=== PATIENT | female | born 1995 | race Caucasian/White ===

== ENCOUNTER 2021-12-05 14:31 | Emergency (ER) | payer MEDICAID, SELFPAY ==
[2021-12-05 15:38] LABS: Adenovirus,PCR Not Detected (NotDetected); Bordetella Pertussis Not Detected (NotDetected); Chlamydophila Pneumoniae, PCR Not Detected (NotDetected); Coronavirus 229E Not Detected (NotDetected); Coronavirus NL63 Not Detected (NotDetected); Coronavirus OC43 Not Detected (NotDetected); Coronovirus HKU1,PCR Not Detected (NotDetected); Human Metapneumovirus Not Detected (NotDetected); Influenza A, PCR Not Detected (NotDetected); Influenza AH1, 2009 Not Detected (NotDetected); Influenza AH1, PCR Not Detected (NotDetected); Influenza AH3,PCR Not Detected (NotDetected); Influenza B, PCR Not Detected (NotDetected); Mycoplasma Pneumoniae, PCR Not Detected (NotDetected); Parainfluenza 1, PCR Not Detected (NotDetected); Parainfluenza 2, PCR Not Detected (NotDetected); Parainfluenza 3, PCR Not Detected (NotDetected); Parainfluenza 4, PCR Not Detected (NotDetected); Respiratory Syncytial Virus Not Detected (NotDetected); Rhinovirus/Enterovirus Not Detected (NotDetected)
--- NOTE | 2021-12-05 15:39 | HMH.EDUTC ---
[facility] – [place] Disposition Clinical Impression: Viral syndrome, Exposure to COVID-19 virus Qualifiers: Weeks of gestation: 16 weeks Qualified Code(s): Z3A.16 - 16 weeks gestation of Disposition: Home, Self-Care Condition on Discharge: Good Instructions: DI for COVID-19 (Suspected or Confirmed ), Preventing the Spread of Coronavirus Discharge Instructions Additional Instructions: Drink plenty of fluids. Take tylenol for pain or fever. Return if you begin to have difficulty breathing. Follow up with your regular doctor. 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 GO TO THE ER FOR ANY WORSENING SYMPTOMS Quarantine until you know the results of your covid-19 test. If it is positive, the health department should call you and give you further instructions about your length of Quarantine and other things. Notify your school or workplace of your results and follow their instructions regarding return to work/school. Referrals: Provider,Referral, [Primary Care Provider] - Time of Disposition: 15:42 Medical Decision Making - Medical Records Medical records reviewed: No: I reviewed the patient's medical records. - David Inquiry Pt receiving controlled substance: No Vital Signs: 12/05/21 15:41 12/05/21 15:56 Temperature 97.9 F 97.9 F Temperature Source Oral Pulse Rate 111 H Pulse Rate [Left] 111 H Respiratory Rate 18 18 Blood Pressure 125/82 Blood Pressure [Right Arm] 125/82 Blood Pressure Mean [Right Arm] 96 02 Sat by Pulse Oximetry 97 - Lab Data Lab Results 12/05/21 15:20: Chlamy pneumoniae PCR Not detected, Adenovirus (PCR) Not detected, B. pertussis DNA (PCR) Not detected, Coronavirus OC43 (PCR) Not detected, Coronavirus HKU1 (PCR) Not detected, Coronavirus 229E (PCR) Not detected, SARS-CoV-2 (PCR) Detected A, Coronavirus NL63 (PCR) Not detected, Human Metapneumovir PCR Not detected, Influenza A (H1) PCR Not detected, Influ A (H1N1/09) PCR Not detected, Influenza A (H3) PCR Not detected, Influenza Type A (PCR) Not detected, Influenza Type B (PCR) Not detected, M. pneumoniae (PCR) Not detected, Parainfluenza 1 (PCR) Not detected, Parainfluenza 2 (PCR) Not detected, Parainfluenza 3 (PCR) Not detected, Parainfluenza 4 (PCR) Not detected, RSV (PCR) Not detected, Entero/Rhino (PCR) Not detected [facility] – [place] HPI - General Stated complaint: covid test Time Seen by Provider: 12/05/21 15:39 - History of Present Illness Provider Complaint: Her son tested positive for covid-19 last night. She states that she has felt bad since yesterday and ran a low grade fever. She is 16 weeks . - Related Data Allergies Allergy/AdvReac Type Severity Reaction Status Date / Time No Known Allergies Allergy Verified 12/05/21 15:43 [facility] History - Hepatitis A Screen Attestation statement:: This patient has been screened for Hepatitis A risk factors. I have reviewed the patient's past medical history: Yes ROS Obtained: Yes All systems reviewed & no additional complaints - Constitutional Constitutional: Reports as per HPI - Eyes Eyes: Denies eye discharge - ENT Ears, Nose, Mouth, and Throat: Reports as per HPI - Cardiovascular Cardiovascular: Denies chest pain - Respiratory Respiratory: Denies chest congestion, Reports cough Physical Exam - General General appearance: alert, in no apparent distress - Head Head exam: atraumatic, normocephalic, normal inspection - Eye Eye exam: Present: normal appearance, PERRL, EOMI - ENT ENT exam: Present: normal exam, normal oropharynx, mucous membranes moist, TM's normal bilaterally, normal external ear exam - Neck Neck exam: Present: normal inspection, full ROM, trachea midline. Absent: meningismus, lymphadenopathy - Chest Chest inspection: Present: normal inspection, symmetric chest wall rise. Absent: tenderness - Respiratory Respiratory exam: Present: normal lung soun
[2021-12-05 15:41] VITALS: BP 125/82; PULSE 111; RESP 18; TEMP 36.6; O2SAT 97; BMI 41.6
[2021-12-05 15:56] VITALS: BP 125/82; PULSE 111; RESP 18; TEMP 36.6
[2021-12-05 21:26] LABS: Coronavirus 19, PCR Detected (NotDetected)
== END 2021-12-05 15:57 | disposition home or self-care (01) ==
PROVIDERS: Emergency Provider Nurse Practitioner Family
DX: O26.892 Other specified pregnancy related conditions, second trimester (principal); Z3A.16 16 weeks gestation of pregnancy; U07.1 COVID-19
CPT/HCPCS: 87581; 87632; 87798; 99212; C9803; G0463; U0003; U0005

== ENCOUNTER → 2021-12-19 14:01 | Outpatient (CLI) | payer MEDICAID, SELFPAY ==
--- NOTE | 2021-12-19 14:03 | US_ITS ---
FINAL REPORT CLINICAL HISTORY: dates, OB complete-- late for care-- unsure of last lmp FINDINGS: There is a single live intrauterine gestation. Presentation is breech. The cervix is closed and measures 4.15. Placenta is posterior, grade 1. movement is noted. Heart rate is measured at 150 beats per minute. Three-vessel cord with satisfactory umbilical cord insertion. Four-chamber heart is noted. brain and ventricles are unremarkable. Chest and diaphragm are unremarkable. ABDOMEN: Both kidneys are unremarkable. Stomach is unremarkable. SPINE: No anomalies identified. AMNIOTIC FLUID: Appropriate amount. MEASUREMENTS: ULTRASOUND AGE: 25 weeks 1 days. ESTIMATED WEIGHT: 786 g GROWTH PERCENTILE: 43% BPD: 6.1 cm corresponding with 24 weeks 6 days. OFD: 8.4 cm corresponding with 26 weeks 1 day. HC: 23.1 cm corresponding with 25 weeks 1 day. AC: 21.3 cm corresponding with 25 weeks 6 days. FL: 4.4 cm corresponding with 24 weeks 4 days. CEREBELLUM: 2.7 cm corresponding with 25 weeks 6 days. HUMERUS: 4.3 cm corresponding with 25 weeks 4 days. HC/AC: 1.08 CI: 72% FL/BPD: 73% FL/AC: 21% IMPRESSION: Single living IUP with an ultrasound age of 25 weeks 1 days. Reviewed, Interpreted and Dictated by Bhargav Winters III, MD Transcribed by Faviola Zheng Authenticated and . [facility]
[2021-12-19 15:37] LABS: Basophils % 0.1 % (0.1-2.0); Eosinophils # 0.1 K/mm3 (0.0-0.4); Eosinophils % 1.4 % (0.1-12.0); Hematocrit 36.4 % (37.0-47.0); Hemoglobin 11.9 g/dL (12.2-16.2); Lymphocytes # 1.1 K/mm3 (0.7-4.5); Lymphocytes % 14.5 % (10-50); Mean Corpuscular HGB Conc 32.7 g/dL (31.8-35.4); Mean Corpuscular Hemoglobin 28.6 pg (27.0-31.2); Mean Corpuscular Volume 87.5 fl (81-99); Mean Platelet Volume 7.6 fl (7.4-10.4); Monocytes # 0.3 K/mm3 (0.1-1.0); Monocytes % 4.3 % (1.7-9.3); Neutrophils # 6.3 K/mm3 (1.8-7.8); Neutrophils % 79.7 % (37.0-80.0); Platelet Count 282 K/mm3 (142-424); Red Blood Count 4.16 M/mm3 (4.20-5.40); White Blood Count 7.9 K/mm3 (4.8-10.8)
[2021-12-21 06:14] LABS: Rubella Antibodies, IgG <0.90 index (Immune >0.99)
[2021-12-21 07:26] LABS: HIV Screen 4th Generation wRfx Non Reactive (Non Reactive); Hepatitis B Surface Antigen Negative (Negative); Hepatitis C Antibody <0.1 s/co ratio (0.0-0.9)
[2021-12-21 09:12] LABS: Rapid Plasma Reagin Ab Titer Non Reactive (NonRea<1:1)
== END ==
PROVIDERS: Visit Provider Obstetrics & Gynecology
DX: Z34.90 Encounter for supervision of normal pregnancy, unspecified, unspecified trimester (principal)
CPT/HCPCS: 36415; 76811; 85025; 86592; 86703; 86762; 86850; 87340; 87380; G0432

== ENCOUNTER → 2021-12-19 16:42 | Outpatient (CLI) | payer MEDICAID, SELFPAY | PROVIDERS: Visit Provider Obstetrics & Gynecology | DX: Z34.90 Encounter for supervision of normal pregnancy, unspecified, unspecified trimester (principal) | CPT/HCPCS: 87086 ==

== ENCOUNTER → 2021-12-20 15:41 | Outpatient (CLI) | payer MEDICAID, SELFPAY ==
[2021-12-20 16:29] LABS: Glucose,Fasting 95 mg/dl (74-100)
[2021-12-20 17:27] LABS: Glucose 1 Hour 130 mg/dL (74-100)
== END ==
PROVIDERS: Visit Provider Obstetrics & Gynecology
DX: Z34.90 Encounter for supervision of normal pregnancy, unspecified, unspecified trimester (principal)
CPT/HCPCS: 36415; 82951

== ENCOUNTER → 2022-02-06 10:58 | Outpatient (CLI) | payer MEDICAID, SELFPAY ==
--- NOTE | 2022-02-06 11:00 | US_ITS ---
FINAL REPORT CLINICAL HISTORY: LGA FINDINGS: There is a single live intrauterine gestation. Presentation is breech. Placenta is posterior and grade 1. Cardiac activity is confirmed at 163 bpm. The cervix measures 3.7 cm. Three-vessel cord with satisfactory umbilical cord insertion. Four-chamber heart is noted. brain and ventricles are unremarkable. Chest and diaphragm are unremarkable. ABDOMEN: Both kidneys are unremarkable. Stomach is unremarkable. SPINE: No anomalies identified. Both arms and legs noted. AMNIOTIC FLUID: Appropriate amount. MEASUREMENTS: ULTRASOUND AGE: 33 weeks 0 days. GESTATION AGE: 32 weeks 1 days. ESTIMATED WEIGHT: 2035 g GROWTH PERCENTILE: 58% BPD: 8.3 cm consistent with 33 weeks 2 days. OFD: 11 cm consistent with 35 weeks 3 days. HC: 30.5 cm consistent with 34 weeks 0 days. AC: 29.6 cm consistent with 33 weeks 4 days. FL: 5.9 cm consistent with 30 weeks 5 days. HC/AC: 1.03 CI: 75% FL/BPD: 71% FL/AC: 20% IMPRESSION: Single living IUP with an ultrasound age of 33 weeks 0 days. Reviewed, Interpreted and Dictated by Bhargav Winters III, MD Transcribed by Gregor Giron Authenticated and [facility]
== END ==
PROVIDERS: Visit Provider Obstetrics & Gynecology
DX: O36.60X0 Maternal care for excessive fetal growth, unspecified trimester, not applicable or unspecified (principal)
CPT/HCPCS: 76816

== ENCOUNTER → 2022-03-03 16:05 | Outpatient (CLI) | payer MEDICAID, SELFPAY | PROVIDERS: Visit Provider Obstetrics & Gynecology | DX: Z34.90 Encounter for supervision of normal pregnancy, unspecified, unspecified trimester (principal); Z3A.35 35 weeks gestation of pregnancy | CPT/HCPCS: 86403 ==

== ENCOUNTER 2022-03-26 05:04 | Inpatient (IN) | payer MEDICAID, SELFPAY ==
[2022-03-26 05:11] VITALS: BMI 42.7
[2022-03-26 05:26] VITALS: BP 141/77; PULSE 110; RESP 18; TEMP 36.9; O2SAT 99; BMI 42.7
[2022-03-26 06:33] LABS: Coronavirus 19, PCR Not Detected (NotDetected); Influenza A, PCR Not Detected (NotDetected); Influenza B, PCR Not Detected (NotDetected); Microscopic, Urine URINE MICROSCOPIC (MICROSCOPIC)
[2022-03-26 06:37] LABS: Appearance,Urine CLEAR (Clear); Bilirubin,Urine Negative (Negative); Blood, Urine Negative (Negative); Color,Urine YELLOW (Yellow); Glucose,Urine (UA) Negative (Negative); Ketones,Urine Negative (Negative); Leukocyte Esterase,Urine Negative (Negative); Nitrate,Urine Negative (Negative); Protein,Urine 1+ (Negative); Specific Gravity, Urine >= 1.030 (1.005-1.030)
[2022-03-26 06:42] LABS: Basophils # 0.1 K/mm3 (0-0.2); Basophils % 0.5 % (0.1-2.0); Eosinophils # 0.1 K/mm3 (0.0-0.4); Eosinophils % 1.1 % (0.1-12.0); Hemoglobin 11.7 g/dL (12.2-16.2); Lymphocytes # 1.8 K/mm3 (0.7-4.5); Lymphocytes % 20.3 % (10-50); Mean Corpuscular HGB Conc 32.6 g/dL (31.8-35.4); Mean Corpuscular Hemoglobin 26.4 pg (27.0-31.2); Mean Platelet Volume 9.1 fl (7.4-10.4); Monocytes # 0.4 K/mm3 (0.1-1.0); Monocytes % 4.4 % (1.7-9.3); Neutrophils # 6.6 K/mm3 (1.8-7.8); Neutrophils % 73.7 % (37.0-80.0); Platelet Count 303 K/mm3 (142-424); Red Blood Count 4.44 M/mm3 (4.20-5.40); Red Cell Distribution Width 14.6 % (11.5-17.5); White Blood Count 8.9 K/mm3 (4.8-10.8)
[2022-03-26 06:48] LABS: Bacteria,Urine Trace /lpf; Mucus,Urine Trace /lpf; Squamous Epithelial Cell,Urine Occasional #/hpf (0-5)
[2022-03-26 06:56] LABS: Amphetamine/Metha Screen,Urine Negative ng/ml (<1000)
[2022-03-26 06:57] LABS: Barbiturates Screen,Urine Negative ng/ml (<200); Benzodiazepines Screen,Urine Negative ng/ml (<200)
[2022-03-26 06:58] LABS: Cannabinoid Screen,Urine Negative ng/ml (<50)
[2022-03-26 06:59] LABS: Cocaine Screen,Urine Negative ng/ml (<300); Methadone Screen,Urine Negative ng/ml (<300)
[2022-03-26 07:00] LABS: Opiate Screen,Urine Negative ng/ml (<300)
[2022-03-26 07:01] LABS: Phencyclidine Screen,Urine Negative ng/ml (<25)
[2022-03-26 07:50] VITALS: BP 145/83; PULSE 94; RESP 17; TEMP 37.1; O2SAT 100
--- NOTE | 2022-03-26 07:58 | EXP.OB.APHP ---
OB - H&P: HPI Antepartum History of Present Illness Chief complaint: Elective induction of labor History of present illness: Ms Orlando Holguin is a 26 yo at 39w4d who presents to [facility] Labor and Delivery for scheduled elective induction of labor. She admits to low back pain and irregular contractions. No vaginal bleeding. Good movement. History of Present Criteria for establishing EDC:: based on 2nd trimester US only (25 week) care: limited care Ultrasounds: normal mid trimester US Obstetrical complications: none Medical complications: none Labs Blood type: O (+) positive Rubella: nonimmune RPR/VDRL: nonreactive GBS status: negative HBsAG: negative [facility] Medical History Rubella non-immune status, antepartum Size of fetus inconsistent with dates in third trimester Social History Smoking Status: Never smoker alcohol intake: never substance use type: denies use current occupational status: unemployed Travel in the last 8 weeks: None Review of Systems Review of Systems Review of systems:: pertinent systems reviewed and negative unless documented below *Musculoskeletal Musculoskeletal: Reports back pain (low back pain) Meds Home Medications and Allergies Home Medications Medication Instructions Recorded Confirmed Type clonazepam 2 mg tablet 2 mg PO DAILY PRN 12/19/21 03/17/22 History New Prescriptions to Start Prescriptions: Allergies Allergy/AdvReac Type Severity Reaction Status Date / Time No Known Allergies Allergy Verified 03/17/22 16:19 OB - H&P: Exam Physical Exam Vital signs: Temp Pulse Resp BP Pulse Ox 98.4 F 110 H 18 141/77 H 99 03/26/22 05:26 03/26/22 05:26 03/26/22 05:26 03/26/22 05:26 03/26/22 05:26 Constitutional no acute distress and cooperative Routine HEENT Exam Head: Present normocephalic Eye: Absent conjunctivae pink ENT: Present mucous membranes moist Routine Neck Exam Present full ROM Routine Respiratory Exam Present CTA bilaterally and normal respiratory effort Routine Cardiovascular Exam Present RRR Routine Abdominal Exam Present soft (Gravid); Absent tenderness Routine Rectal Exam Patient deferred: visual exam Routine Exam External: Present normal urethra appearance; Absent tenderness or lesions Routine Extremities Exam Present full ROM; Absent edema or calf tenderness Routine Neurological Exam Present alert, oriented X3 and moving all extremities Routine Psychiatric Exam Present normal affect and cooperative Detailed Labor and Delivery Exam Dilation (cm): 3 Effacement (%): 60 Cervix position: posterior station: -2 Consistency: medium Membranes: intact Baseline heart rate: 145 monitor accelerations: Present monitor decelerations: None conche operator variability: Moderate (11-25) Contraction frequency (min): 3 Tachysystole: No OB - Results Labs Labs: Short CBC 03/26/22 Range/Units 05:45 WBC 8.9 (4.8-10.8) K/mm3 Hgb 11.7 L (12.2-16.2) g/dL Hct 36.0 L (37.0-47.0) % Plt Count 303 (142-424) K/mm3 Urine 03/26/22 Range/Units 05:45 Urine Color Yellow (Yellow) Urine Appearance Clear (Clear) Urine pH 6.0 (5.0-8.5) Ur Specific [place] >= 1.030 (1.005-1.030) Urine Protein 1+ (Negative) Urine Glucose (UA) Negative (Negative) OB - A/P Antepartum (1) : Status: Acute (2) Grand multipara: Status: Acute (3) Morbid obesity with BMI of 40.0-44.9, adult: Status: Acute (4) Late care: Status: Acute (5) Anxiety: Status: Acute (6) Rubella non-immune status, antepartum: Status: Acute Additional Plan Additional Information:: Admit to L&D for induction of labor with Pitocin GBS negative Close monitoring
--- NOTE | 2022-03-26 08:57 | P.PN_ITS ---
[facility] Medical History Rubella non-immune status, antepartum Size of fetus inconsistent with dates in third trimester Social History Smoking Status: Never smoker alcohol intake: never substance use type: denies use current occupational status: unemployed Travel in the last 8 weeks: None [facility] Anesthesia Checklist Patient Identification Patient Identification: Arm Band and Verbal (Name & ) Structural Data Admitted From: Inpatient Planned Operative Procedure/s: Labor epidural Consent for Planned Operative Procedure(s) Verified: Yes NPO Status Verified Time NPO: 04:30 Chart Verification Results Verified: CBC Additional verifications Patient : Yes Airway Assessment C-Spine Mobility Assessed: Yes TMJ Mobility Assessed: Yes Dentition: Good Dentition Neurological Assessment Level of Consciousness: Awake Hx Seizures: No Numbness or tingling in extremities: No Anesthesia Plan Anesthesia Risk discussed: Yes Anesthesia Plan: Verified ASA Class: II Anesthesia Type: Epidural
--- NOTE | 2022-03-26 10:36 | EXP.LABOR.NO ---
Labor Note Subjective: Date: 03/26/22 Time: 10:36 regular contraction Objective: Contractions:: every 2-3 minutes Cervical Dilation:: 5 Effacement:: 70% Station: -2 Membranes: artificially ruptured (at 1024, clear fluid) Comment:: NST Category 1 Baseline 145 bpm, moderate variability, no accelerations, occasional variable decelerations Fetus: Monitoring?: Yes monitoring type:: Internal and External (External FHT, IUPC) Assessment: Labor progressing?: Yes Cephalopelvic disproportion?: No All Active Problems (Updated 03/17/22 @ 16:38 by Mecca Pierce, ) Size of fetus inconsistent with dates in third trimester (Acute) Rubella non-immune status, antepartum (Acute) Anxiety (Acute) Late care (Acute) Morbid obesity with BMI of 40.0-44.9, adult (Acute) Grand multipara (Acute) (Acute) Plan: Anesthesia for epidural?: Yes Plan for ?: No Continue to monitor?: Yes
--- NOTE | 2022-03-26 13:52 | EXP.DN ---
Delivery Note Delivery Date:: 03/26/22 Delivery Time:: 13:41 Anesthesia Type: Epidural Was labor medically induced?: Yes Induction method: AROM Gestational age (weeks): 39 Infant delivered prior to 39 weeks?: No Gender: Male at 1 minute: 8 at 5 minutes: 9 Delivery Procedure:: Mom complete without epidural. Pushed for approximately 1 contraction. Head delivered spontaneously over intact perineum in LIZBETH position. No nuchal cord. Anterior shoulder delivered with gentle downward pressure. Posterior shoulder and remainder of body delivered spontaneously. Baby placed on maternal abdomen, mouth and nares bulb suctioned, warmed/dried and stimulated. Delayed cord clamping was performed for 60 seconds. Cord was clamped and cut by mom. Cord blood was obtained. Placenta delivered spontaneously and intact. No lacerations. Mom and baby were skin to skin and doing well after delivery. Live female/male baby (baby's name is Edgar) APGARs 8, 9 EBL 100 mL Placental Delivery Description: Spontaneous
[2022-03-27 07:39] LABS: Basophils # 0.1 K/mm3 (0-0.2); Basophils % 0.5 % (0.1-2.0); Eosinophils # 0.2 K/mm3 (0.0-0.4); Eosinophils % 1.8 % (0.1-12.0); Hematocrit 33.9 % (37.0-47.0); Hemoglobin 11.5 g/dL (12.2-16.2); Lymphocytes # 2.5 K/mm3 (0.7-4.5); Lymphocytes % 22.1 % (10-50); Mean Corpuscular HGB Conc 33.8 g/dL (31.8-35.4); Mean Corpuscular Hemoglobin 27.4 pg (27.0-31.2); Mean Corpuscular Volume 81.1 fl (81-99); Mean Platelet Volume 8.6 fl (7.4-10.4); Monocytes # 0.5 K/mm3 (0.1-1.0); Monocytes % 4.8 % (1.7-9.3); Neutrophils # 7.9 K/mm3 (1.8-7.8); Neutrophils % 70.7 % (37.0-80.0); Platelet Count 284 K/mm3 (142-424); Red Blood Count 4.18 M/mm3 (4.20-5.40); Red Cell Distribution Width 14.6 % (11.5-17.5); White Blood Count 11.2 K/mm3 (4.8-10.8)
--- NOTE | 2022-03-27 08:40 | EXP.DC.SUM ---
General Admission date:: 03/26/22 Discharge date: 03/27/22 HPI HPI HPI: PPD # 1 s/p Resting comfortably in bed. She is breast feeding. Light lochia. Feeling well. Tolerating regular diet. Voiding without difficulty. Passing flatus. Denies fever/chills, chest pain and shortness of breath. No headaches or swelling. Hospital Course Hospital Course Hospital Course: Ms Orlando Holguin is a 26 yo at 39w4d who presented to [facility] Labor and Delivery for scheduled elective induction of labor. She underwent induction of labor with Pitocin. She had a normal spontaneous vaginal delivery on 03/26/22 at 1341. She delivered a baby boy weighing 9 lb 2oz. APGARs 8 ,9. EBL 100 mL. PPD # 1 she was doing well. Light lochia. She was breast feeding. Voiding without difficulty and passing flatus. Heart was regular rate and rhythm. Lungs were clear to auscultation. Uterus was firm and below umbilicus. She was tolerating regular diet. Vital signs: BP 120/61, HR 94, R 17, T 97.9. Trace lower extremity edema. No calf tenderness to palpation. Normal hospital course. Hgb/Hct 03/26/22: 11.7/36.0 Hgb/Hct 03/27/22: 11.5/33.9 Exam Data for Last 24 hours Vital signs and Labs for Last 24 Hours: Temp Pulse Resp BP Pulse Ox 98.7 F 94 H 17 145/83 H 100 03/26/22 07:50 03/26/22 07:50 03/26/22 07:50 03/26/22 07:50 03/26/22 07:50 Laboratory Results - last 24 hr 03/27/22 07:15: WBC 11.2 H D, RBC 4.18 L, Hgb 11.5 L, Hct 33.9 L, MCV 81.1, MCH 27.4, MCHC 33.8, RDW 14.6, Plt Count 284, MPV 8.6, Neut % (Auto) 70.7, Lymph % (Auto) 22.1, Hayes % (Auto) 4.8, Eos % (Auto) 1.8, Baso % (Auto) 0.5, Neut # (Auto) 7.9 H, Lymph # (Auto) 2.5, Hayes # (Auto) 0.5, Eos # (Auto) 0.2, Baso # (Auto) 0.1 I & O for Last 24 hours: Intake & Output 03/24/22 03/25/22 03/26/22 03/27/22 23:59 23:59 23:59 23:59 Weight 265 lb Constitutional Constitutional: no acute distress and cooperative *Routine HEENT Exam Head: Present normocephalic Eye: Absent conjunctivae pink ENT: Present mucous membranes moist *Routine Neck Exam Neck: Present full ROM *Routine Respiratory Exam Respiratory: Present CTA bilaterally and normal respiratory effort *Routine Cardiovascular Exam Cardiovascular: Present RRR *Routine Abdominal Exam Abdominal: Present soft and normoactive bowel sounds; Absent tenderness or distended Comments: Uterine fundus firm and below umbilicus *Routine Extremities Exam Extremities: Present edema (trace bilateral lower extremity edema) and full ROM; Absent calf tenderness *Routine Neurological Exam Neurological: Present alert, oriented X3 and moving all extremities Routine Psychiatric Exam Psychiatric: Present normal affect and cooperative Results Data Completed and Pending Labs on day of discharge: Labs from last 24 hours 03/27/22 07:15 WBC 11.2 H D RBC 4.18 L Hgb 11.5 L Hct 33.9 L MCV 81.1 MCH 27.4 MCHC 33.8 RDW 14.6 Plt Count 284 MPV 8.6 Neut % (Auto) 70.7 Lymph % (Auto) 22.1 Hayes % (Auto) 4.8 Eos % (Auto) 1.8 Baso % (Auto) 0.5 Neut # (Auto) 7.9 H Lymph # (Auto) 2.5 Hayes # (Auto) 0.5 Eos # (Auto) 0.2 Baso # (Auto) 0.1 DS: Diagnosis Discharge Diagnosis (1) : Status: Acute (2) Grand multipara: Status: Acute (3) Morbid obesity with BMI of 40.0-44.9, adult: Status: Acute (4) Late care: Status: Acute (5) Anxiety: Status: Acute (6) Rubella non-immune status, antepartum: Status: Acute Meds Home Medications and Allergies Home Medications Medication Instructions Recorded Confirmed Type ibuprofen 400 mg tablet 800 mg PO Q8HP PRN Mild To 03/27/22 Rx Moderate Pain #20 tabs New Prescriptions to Start Prescriptions: ibuprofen Canan,Mecca Allergies Allergy/AdvReac Type Severity Reaction Status Date / Time No Known Allergies Allergy Verified 03/17/22 16:19 Discharge Plan Disposition Patient
[2022-03-27 08:48] VITALS: BP 133/65; PULSE 68; RESP 16; TEMP 36.5; O2SAT 97
--- NOTE | 2022-03-27 14:32 | SW/DCPLANNER ---
Addendum entered by Laure Erickson 03/31/22 08:35: Infant cord screen is NEGATIVE. Original Note: I received a consult for this patient regarding: limited care. I spoke with patient this afternoon regarding referral. Patient did have a total of 5 visits. Patient stated this was due to residing in [place] and in the process of moving/could not find a OBGYN. Patient delivered male (Edgar Holguni) on 03/26/22. Infant's father was not present but is involved (Da Holguin 09/15/84). Patient, Da, infant and seven other children will reside at [address] [place] [address] in [place] [phone]. Patient stated her other children's age range from 10-. Patient is established with [facility] and is interested in HANDS. I did make a HANDS referral to [facility]. Patient stated that she has had a past history of drug use: roughly two years ago and all children were removed for six months case is currently closed. Patient did have two urine drug screens during and both were negative. OB staff (Rody) did state that cord screen has been sent off. Patient stated that she has the following items at home: crib, clothing, carseat, diapers and will be breast feeding. Patient stated that she does have follow appointments and infant will follow up with Dr Marx. Patient will discharge home today. Patient has no further needs at this time.
== END 2022-03-27 17:18 | disposition home or self-care (01) | DRG 807 ==
PROVIDERS: Admitting Provider Obstetrics & Gynecology; Visit Provider Obstetrics & Gynecology
DX: O80 Encounter for full-term uncomplicated delivery (principal); Z37.0 Single live birth; Z3A.39 39 weeks gestation of pregnancy
CPT/HCPCS: 59409; 36415; 59025; 80305; 81001; 85025; 86850; 94761; C1758; C9803; G0283; U0003; U0005

== ENCOUNTER 2022-04-30 16:43 | Emergency (ER) | payer MEDICAID, SELFPAY ==
[2022-04-30 18:20] VITALS: BP 117/86; PULSE 89; RESP 18; TEMP 37; O2SAT 99; BMI 39.6
--- NOTE | 2022-04-30 18:29 | EXP.UTC ---
Discharge Plan Disposition Patient Disposition: Home, Self-Care Condition: Good Prescriptions Prescriptions: No Action acetaminophen 325 mg Tablet 975 mg PO Q6HP PRN (Reason: Mild Pain) Qty: 30 0RF ibuprofen 400 mg Tablet 800 mg PO Q8HP PRN (Reason: Mild To Moderate Pain) Qty: 20 0RF Referrals Follow up/Referrals: Provider,Referral, MD [Primary Care Provider] - See instructions Activity Restrictions/Add. Instructions Additional Instructions/Restrictions: *Monitor Temp, Over the counter Motrin or Tylenol as directed/as needed Tylenol every 4 hours and Motrin every 6 hours (as long as your family doctor has told you that you can take it) for fever or pain. and straight to ER if unable to lower temp less than 101.0 after medication given *Warm salt water gargles may help to soothe the throat *Throat Lozenges? *Warm fluids like tea with honey may help to soothe the throat? *Sleep elevated *Humidifier/Vaporizer *If you did not take Penicillin shot or was unable to, start taking antibiotic immediately and make sure that you take it for the FULL length of time although you should start to feel better in 24-48 hours *change toothbrush and toothpaste 24-48 hours after starting to take antibiotics so you do not reinfect yourself Monitor Temp. Tylenol and/or Ibuprofen as needed. ER if fever is no less than 101 despite alternating Tylenol and Ibuprofen * Encourage fluids, water, Gatorade, powerade, pedialyte if infant/toddler/or child *Cold fluids, popsicles and ice cream may feel good on his throat Follow up IMMEDIATELY for new or worsening symptoms or no Noticeable improvement over the next 48-72 hours. 911 for difficulty breathing or swallowing Clinical Impressions Clinical Impression: Strep throat Stand Alone Forms Stand Alone Forms: Work/School Release Instructions Patient Instructions: DI for Strep Throat, Strep Throat Discharge ED Provider: Lesli Keene [facility] HPI General Stated complaint: FEVER,ontiveros cOUGH sORE THROAT Time Seen by Provider: 04/30/22 18:29 History of Present Illness Provider Complaint: Patient states that she has been having fever on and off, sorethroat, body aches, headache and chills States that several in the house has RSV, FLu and strep throat so she came in to get checked when she started having symptoms Related Data Previous Rx's Medication Instructions Recorded acetaminophen 325 mg tablet 975 mg PO Q6HP PRN Mild Pain #30 03/27/22 tabs ibuprofen 400 mg tablet 800 mg PO Q8HP PRN Mild To 03/27/22 Moderate Pain #20 tabs Allergies Allergy/AdvReac Type Severity Reaction Status Date / Time No Known Allergies Allergy Verified 03/17/22 16:19 [facility] Disclaimer: The information contained in this section may have been updated after the patient was seen, as this information can be updated by other users. Medical History (Updated 04/30/22 @ 18:55 by Lesli Kenee APRN) Anxiety Migraines Rubella non-immune status, antepartum Size of fetus inconsistent with dates in third trimester Social History (Updated 04/30/22 @ 18:45 by Pamela Pagan RN) Smoking Status: Never smoker alcohol intake: never substance use type: denies use current occupational status: unemployed Travel in the last 8 weeks: None ROS Obtained: Yes All systems reviewed & no additional complaints except as documented and Yes Systems reviewed as appropriate & no additional complaints except as documented Constitutional Constitutional: Reports system reviewed and no additional complaints, except as documented, Reports as per HPI, Reports body ache, Reports chills, Reports fever(s) and Reports headache(s) ENT Ears, Nose, Mouth, and Throat: Reports system reviewed and no additional complaints, except as documented, Reports as per HPI, Reports headache(s), Reports nasal congestion, Reports nasal discharge and Reports sore throat Cardiovascular Cardiovascular: Reports
[2022-04-30 18:42] LABS: UTC Strep Screen (Rapid) Positive (Negative)
[2022-04-30 18:56] VITALS: BP 117/86; PULSE 89; RESP 18; TEMP 37; O2SAT 99
== END 2022-04-30 18:59 | disposition home or self-care (01) ==
PROVIDERS: Emergency Provider Nurse Practitioner
DX: J02.0 Streptococcal pharyngitis (principal)
CPT/HCPCS: 87880; 99212; G0463

== ENCOUNTER 2022-08-10 15:57 | Emergency (ER) | payer MEDICAID, SELFPAY ==
[2022-08-10 17:00] VITALS: BP 114/70; PULSE 75; RESP 20; TEMP 37.2; O2SAT 100; BMI 40.3
--- NOTE | 2022-08-10 17:01 | EXP.UTC ---
Discharge Plan Disposition Patient Disposition: Home, Self-Care Condition: Good Prescriptions Prescriptions: New ondansetron 4 mg Tablet,Disintegrating 4 mg PO Q8H PRN (Reason: Nausea) Qty: 20 0RF Referrals Follow up/Referrals: Provider,Referral, [Primary Care Provider] - See instructions Activity Restrictions/Add. Instructions Additional Instructions/Restrictions: Drink plenty of fluids. Take tylenol or ibuprofen for pain or fever. Take the medications as directed. Follow up with your regular doctor. GO TO THE ER FOR ANY WORSENING SYMPTOMS Clinical Impressions Clinical Impression: Gastroenteritis Instructions Patient Instructions: DI for Viral Gastroenteritis -- Adult, Ondansetron Discharge ED Provider: Da Renner [facility] [place] General Stated complaint: Diarrhea Time Seen by Provider: 08/10/22 17:00 History of Present Illness Provider Complaint: She staates that for the past 2 days she has had n/v/d. Related Data Previous Rx's Medication Instructions Recorded ondansetron 4 mg disintegrating 4 mg PO Q8H PRN Nausea #20 tabs 08/10/22 tablet Allergies Allergy/AdvReac Type Severity Reaction Status Date / Time No Known Allergies Allergy Verified 08/10/22 17:13 [facility] Disclaimer: The information contained in this section may have been updated after the patient was seen, as this information can be updated by other users. Medical History Anxiety Migraines Rubella non-immune status, antepartum Size of fetus inconsistent with dates in third trimester Social History Smoking Status: Never smoker alcohol intake: never substance use type: denies use current occupational status: unemployed Travel in the last 8 weeks: None ROS Obtained: Yes All systems reviewed & no additional complaints except as documented Constitutional Constitutional: Denies chills, Denies fever(s) and Reports poor appetite ENT Ears, Nose, Mouth, and Throat: Denies dizziness and Denies sore throat Cardiovascular Cardiovascular: Denies dyspnea Respiratory Respiratory: Denies chest congestion, Denies cough and Denies dyspnea Gastrointestinal Gastrointestingal: Reports as per HPI; Denies abdominal pain Genitourinary Female Genitourinary: Denies difficulty voiding, Denies dysuria, Denies hematuria, Denies urinary frequency, Denies urinary incontinence, Denies urinary hesitancy and Denies urinary urgency Musculoskeletal Musculoskeletal: Denies arthralgias Integumentary/Breasts Skin/Breast: Denies rash Neurologic Neurologic: Denies dizziness Physical Exam General General appearance: alert and in no apparent distress Head Head exam: atraumatic and normocephalic Eye Eye exam: Present normal appearance, PERRL and EOMI ENT ENT exam: Present normal exam, normal oropharynx, mucous membranes moist, TM's normal bilaterally and normal external ear exam Neck Neck exam: Present normal inspection, full ROM and trachea midline; Absent tenderness, meningismus or lymphadenopathy Chest Chest inspection: Present normal inspection and symmetric chest wall rise; Absent tenderness, rash or abscess Respiratory Respiratory exam: Present normal lung sounds bilaterally; Absent respiratory distress, wheezes or stridor Cardiovascular Cardiovascular exam: Present regular rate and normal rhythm; Absent irregular rhythm, systolic murmur, diastolic murmur or JVD Abdominal Exam Abdominal exam: Present soft and normal bowel sounds; Absent distention, tenderness, guarding, rebound, rigidity, psoas sign, obturator sign, heel tap sign, Simental's sign, Rovsing's sign or tenderness at McBurney's Point Extremities Exam Extremities exam: Present normal inspection and full ROM; Absent tenderness Back Exam Back exam: Present normal inspection and full ROM; Absent tenderness, CVA tenderness (R) or CVA tenderness (L) Neurological Exam Ne
[2022-08-10 18:00] VITALS: BP 114/70; PULSE 75; RESP 20; TEMP 37.2; O2SAT 100
== END 2022-08-10 18:00 | disposition home or self-care (01) ==
PROVIDERS: Emergency Provider Nurse Practitioner Family
DX: K52.9 Noninfective gastroenteritis and colitis, unspecified (principal)
CPT/HCPCS: 99212; 99214; G0463

== ENCOUNTER → 2023-03-31 08:48 | Outpatient (CLI) | payer MEDICAID, SELFPAY ==
[2023-03-31 18:17] LABS: Basophils % 0.4 % (0.1-2.0); Eosinophils # 0.2 K/mm3 (0.0-0.4); Eosinophils % 3.5 % (0.1-12.0); Hematocrit 39.5 % (37.0-47.0); Hemoglobin 13.5 g/dL (12.2-16.2); Lymphocytes # 1.6 K/mm3 (0.7-4.5); Lymphocytes % 27.3 % (10-50); Mean Corpuscular HGB Conc 34.2 g/dL (31.8-35.4); Mean Corpuscular Hemoglobin 30.1 pg (27.0-31.2); Mean Platelet Volume 8.7 fl (7.4-10.4); Monocytes # 0.2 K/mm3 (0.1-1.0); Monocytes % 3.3 % (1.7-9.3); Neutrophils # 3.7 K/mm3 (1.8-7.8); Neutrophils % 65.4 % (37.0-80.0); Platelet Count 298 K/mm3 (142-424); Red Blood Count 4.49 M/mm3 (4.20-5.40); Red Cell Distribution Width 13.4 % (11.5-17.5); White Blood Count 5.7 K/mm3 (4.8-10.8)
[2023-03-31 18:37] LABS: Alanine Aminotransferase 23 U/L (12-78); Albumin Level 4.4 g/dl (3.5-5.0); Albumin/Globulin Ratio 1.3 (1.1-1.8); Alkaline Phosphatase 63 U/L (38-126); Anion Gap 12.9 mEq/L (5-15); Aspartate Amino Transferase 26 U/L (14-36); Bilirubin,Total 0.3 mg/dl (0.2-1.3); Blood Urea Nitrogen 15 mg/dl (7-17); Calcium 9.1 mg/dl (8.4-10.2); Carbon Dioxide 24 mmol/L (22.0-30.0); Chloride 107 mmol/L (98-107); Chol/HDL Ratio 4.3 (1-3.5); Cholesterol 176 mg/dl (140-200); Estimated Glomerular Filt Rate 99 ml/min (>60); GFR (African American) 120 ML/MIN (>60); Globulin 3.4 g/dL (1.3-3.2); Glucose 96 mg/dl (74-100); HDL Cholesterol 41 mg/dl (40-60); Potassium 3.9 mmoL/L (3.5-5.1); Sodium 140 mmol/L (136-145); Total Protein,Serum 7.8 g/dl (6.3-8.2); Triglycerides 62 mg/dl (30-150); VLDL Cholesterol 12 mg/dL (0-40)
[2023-03-31 18:49] LABS: Direct LDL Cholesterol 106.73 mg/dL (100-129)
[2023-03-31 18:53] LABS: Hemoglobin A1C 4.8 % (4.0-6.0)
[2023-03-31 18:54] LABS: 25-OH Vitamin D, Total 35.6 ng/mL (30-100)
[2023-03-31 19:07] LABS: Thyroid Stimulating Hormone 2.21 uIU/mL (0.465-4.68)
[2023-03-31 19:26] LABS: Vitamin B12 410 pg/mL (239-931)
[2023-03-31 19:42] LABS: Erythrocyte Sedimentation Rate 20 mm/hr (0-20)
== END ==
PROVIDERS: PCP Nurse Practitioner; Visit Provider Nurse Practitioner
DX: F41.9 Anxiety disorder, unspecified (principal); R53.83 Other fatigue; Z68.41 Body mass index [BMI] 40.0-44.9, adult
CPT/HCPCS: 80053; 80061; 82306; 82607; 83036; 84443; 85025; 85651